=== PATIENT | male | born 1995 | race Caucasian/White ===

== ENCOUNTER → 2024-06-24 08:16 | Outpatient (REF) | payer OTHER, SELFPAY | LOC: RAD 08:16 | PROVIDERS: ATTENDING PHYSICIAN Nurse Practitioner Adult Health | DX: R10.12 Left upper quadrant pain (principal); S39.91XA Unspecified injury of abdomen, initial encounter | CPT/HCPCS: 76700 ==

== ENCOUNTER → 2025-04-04 08:12 | Outpatient (REF) | payer OTHER, SELFPAY | LOC: RAD 08:12 | PROVIDERS: ATTENDING PHYSICIAN Physician Assistant Medical; FAMILY PHYSICIAN Nurse Practitioner Adult Health | DX: D48.5 Neoplasm of uncertain behavior of skin (principal) | CPT/HCPCS: 76882 ==